=== PATIENT | male | born 1955 | race Caucasian/White ===

== ENCOUNTER 2016-07-28 16:30 | Emergency (ER) | payer OTHER ==
--- NOTE | 2016-07-28 17:35 | RAD ---
EXAMINATION : FINGER RIGHT HISTORY: Swelling at the distal interphalangeal joint right index finger. No known injury. COMPARISONS: None available. FINDINGS: There is moderate soft tissue swelling involving the distal interphalangeal joint of the right index finger. There is considerable adjacent osteophyte formation which may reflect posttraumatic osteoarthritis. There is a question of some focal erosion involving the DIP joint as well. No marginal erosion is appreciated. No acute fracture or dislocation is identified. IMPRESSION: Moderate soft tissue changes with irregularity involving the distal interphalangeal joint of right index finger. 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 There is considerable degenerative change of the DIP joint as well with apparent posttraumatic deformity of the distal phalanx. This may reflect also posttraumatic osteoarthritis.
== END 2016-07-28 18:11 | disposition home or self-care (01) ==
LOC: ED 16:30
DX: L03.011 Cellulitis of right finger (principal); M10.9 Gout, unspecified